=== PATIENT | male | born 1990 | race Two or more races ===

== ENCOUNTER → 2020-10-13 | Outpatient (CLI) | payer SELFPAY | LOC: M LABSMTC 13:04 | PROVIDERS: ATTEND Pediatrics | DX: Z20.822 Contact with and (suspected) exposure to COVID-19 (principal) ==

== ENCOUNTER 2021-08-03 23:34 | Emergency (ER) | payer OTHER ==
[~2021-08-03] VITALS: Ht 180.3 cm; Wt 101.0 kg
[2021-08-03 23:34] VITALS: BP 128/73
[2021-08-03] MEDS ORDERED: ACET-683 PO (23:37)
== END 2021-08-04 06:33 | disposition home or self-care (01) ==
LOC: M ED 23:34
DX: U07.1 COVID-19 (principal)

== ENCOUNTER 2021-08-15 08:44 | Emergency (ER) | payer OTHER ==
[~2021-08-15] VITALS: Ht 180.3 cm; Wt 102.5 kg
[~2021-08-15 08:44] MED LIST: ACET-683 PO
[2021-08-15 09:57] VITALS: O2SAT 97
[2021-08-15 11:17] VITALS: BP 128/71
== END 2021-08-15 11:19 | disposition home or self-care (01) ==
LOC: M ED 08:44
DX: U07.1 COVID-19 (principal); M79.10 Myalgia, unspecified site; R07.9 Chest pain, unspecified; R00.1 Bradycardia, unspecified